=== PATIENT | male | born 1990 | race Caucasian/White ===

== ENCOUNTER 2020-12-20 23:38 | Emergency (ER) | payer OTHER ==
[~2020-12-20] VITALS: Ht 182.9 cm; Wt 94.9 kg
[2020-12-20 23:40] VITALS: BP 160/88
[2020-12-20] MEDS ORDERED: APAP500T10 PO (23:48)
[2020-12-21] MEDS ORDERED: CYCLOBENZAPRINE 10MG TABLET PO ONE (01:00)
[2020-12-21] MEDS ORDERED: PERCOCET 5MG/325MG TAB PO ONE (01:00)
--- NOTE | 2020-12-21 01:36 | REPVR ---
PROCEDURE INFORMATION: Exam: CT Cervical Spine Without Contrast Exam date and time: 12/21/2020 12:59 AM Age: 30 years old Clinical indication: Neck pain; Additional info: Injury pain TECHNIQUE: Imaging protocol: Computed tomography images of the cervical spine without contrast. Axial, coronal and sagittal reformatted images were created and reviewed. Radiation optimization: All CT scans at this facility use at least one of these dose optimization techniques: automated exposure control; mA and/or kV adjustment per patient size (includes targeted exams where dose is matched to clinical indication); or iterative reconstruction. COMPARISON: No relevant prior studies available. FINDINGS: Bones/joints: Normal cervical lordosis. No CT evidence of acute fracture, dislocation or subluxation. Alignment anatomic. Levoscoliosis. Vertebral body heights maintained. Discs/Spinal canal/Neural foramina: Intervertebral disc spaces preserved. No significant spinal canal or neural foraminal stenosis. Lungs: Grossly unremarkable. Soft tissues: Grossly unremarkable. IMPRESSION: 1. No CT evidence of acute cervical spine traumatic injury. 2. Additional findings, as above. Electronically signed by: Stef Avelar On 12/21/2020 01:35:44 AM
--- NOTE | 2020-12-21 01:38 | REPVR ---
PROCEDURE INFORMATION: Exam: CT Thoracic Spine Without Contrast Exam date and time: 12/21/2020 12:59 AM Age: 30 years old Clinical indication: Pain in thoracic spine; Additional info: Injury pain TECHNIQUE: Imaging protocol: Computed tomography images of the thoracic spine without contrast. Axial, coronal and sagittal reformatted images were created and reviewed. Radiation optimization: All CT scans at this facility use at least one of these dose optimization techniques: automated exposure control; mA and/or kV adjustment per patient size (includes targeted exams where dose is matched to clinical indication); or iterative reconstruction. COMPARISON: No relevant prior studies available. FINDINGS: Vertebrae: Normal thoracic kyphosis. Alignment anatomic. Minimal dextroscoliosis. No CT evidence of acute fracture, dislocation or subluxation. Vertebral body heights maintained. Discs/Spinal canal/Neural foramina: Intervertebral disc spaces preserved. No significant spinal canal or neural foraminal stenosis. Soft tissues: Unremarkable. IMPRESSION: 1. No CT evidence of acute thoracic spine traumatic injury. 2. Additional findings, as above. Electronically signed by: Stef Avelar On 12/21/2020 01:37:50 AM
[2020-12-21] MEDS ORDERED: NAPR-837 PO (01:52)
[2020-12-21] MEDS ORDERED: MEDR4PAK PO (01:52)
[2020-12-21] MEDS ORDERED: CYCL-707 PO (01:52)
== END 2020-12-21 02:42 | disposition home or self-care (01) ==
LOC: M ED 23:38
DX: S29.012A Strain of muscle and tendon of back wall of thorax, initial encounter (principal); V00.221A Fall from sled, initial encounter; Y92.830 Public park as the place of occurrence of the external cause